=== PATIENT | female | born 1965 | race Caucasian/White ===

== ENCOUNTER 2024-05-29 18:17 | Inpatient (IN) | payer BC, SELFPAY ==
[2024-05-29] VITALS (9 sets, daily range): BP systolic 96–140; BP diastolic 53–90; BMI 24.6; BMI 23.3; BMI 23.5; BMI 23.4
[2024-05-29 11:52] LABS: % Basophils 0.5 % (0-2); % Eosinophils 0.2 % (0-6); % Immature Granulocytes 0.2 % (0-0.5); % Lymphocytes 10.6 % (20.5-51.1); % Monocytes 12.2 % (1.7-9.3); % Neutrophils 76.3 % (42.2-75.2); Absolute Lymphocytes 0.9 10^3/uL (1.2-3.4); Absolute Monocytes 1.1 10^3/uL (0.1-0.6); Absolute Neutrophils 6.8 10^3/uL (1.4-6.5); Hematocrit 43.6 % (37.0-47.0); Mean Corp Hgb Conc. 34.4 g/dL (33.0-37.0); Mean Corpuscular Hgb 31.3 pg (27.0-31.0); Mean Platelet Volume 10.3 fL (7.4-10.4); Nucleated Red Blood Cells % 0 %; Platelet Count 179 10^3/uL (130-400); Red Blood Cell Count 4.79 10^6/uL (4.20-5.40); Red Cell Dist. Width 11.6 % (11.5-14.5); White Blood Cell Count 8.9 10^3/uL (4.8-10.8)
[2024-05-29 11:56] LABS: ALT (SGPT) 46 U/L (0-35); AST (SGOT) 55 U/L (14-36); Albumin 4.5 g/dl (3.5-5.0); Alkaline Phosphatase 85 U/L (38-126); Blood Urea Nitrogen 14 mg/dl (7-17); Calcium 9.8 mg/dl (8.4-10.2); Carbon Dioxide 30 mmol/L (22-30); Chloride 97 mmol/L (98-107); Glucose 115 mg/dl (70-99); Potassium 5.4 mmol/L (3.5-5.1); Sodium 136 mmol/L (135-145); Total Bilirubin 0.5 mg/dl (0.2-1.3); Total Protein 7.2 g/dl (6.3-8.2); eGFR > 60.00
[2024-05-29 12:07] LABS: Troponin I 0.028 ng/ml
--- NOTE | 2024-05-29 14:39 | ED.GENMED ---
History of Present Illness
General
Chief Complaint: Chest Pain
Source: patient
Time Seen by Provider: 05/29/24 14:04
History of Present Illness
History of Present Illness:
59-year-old female with past medical history of hyperlipidemia presenting to the emergency department for evaluation after she started with palpitations and chest discomfort accompanied with diaphoresis around 9 AM while at work. Symptoms lasted
for approximately 30 to 45 minutes and are now resolved but patient states she has felt a mild sense of fatigue since that time. 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
Apple Watch thought patient may be in atrial fibrillation. Patient denies any history of similar. She does note a recent viral URI but reports resolution of the symptoms. Denies any current fevers, chills, rigors, chest pain or shortness of
breath, exertional dyspnea, orthopnea, cough or any other concerns. Family history was noted for mother having atrial fibrillation. Social history was noted for occasional alcohol use but denies any recently.
Past History
Past History
ED Past Medical History: Hypercholesterolemia
ED Past Surgical History: None
Social History
Tobacco: Non-smoker
Alcohol: Occasional
Drug: None
Personal:
Living: with family
Employment: Employed
Review of Systems
Review of Systems
All Other Systems: ROS reviewed and negative except as documented in HPI and ROS
Phy Exam
Physical Exam
Physical Exam:
GENERAL: Alert , in no apparent distress
EYE: conjunctiva clear
NECK: Supple, no significant adenopathy.
ENT: o/p clr, mmm.
CARDIAC: Regular rate and rhythm
LUNGS: Clear breath sounds bilaterally, no acute respiratory distress, no wheezes/rales/rhonchi
NEUROLOGICAL: Alert and oriented
SKIN: Warm and dry, skin intact.
MUSCULOSKELETAL: well perfused.
PSYCH: Normal and appropriate interaction.
Scores
Heart Failure Risk
Heart Failure Risk Score: Not Applicable
Heart Score for Chest Pain Patients
STEMI patient?: No
History: Moderately Suspicious
ECG: Normal
Age: >45 - <65 years
Risk Factors: 1 or 2 Risk Factors
Troponin: </= Normal Limit
Heart Score for Chest Pain Patients: 3
Heart Score Risk: 2.5% MACE over next 6 weeks
Withdrawal Assessment of Alcohol
Withdrawal Assessment Completed?: Not applicable
Course
Orders/Labs/Results
Orders:
Orders
05/29/24
Electrocardiogram (*1) Stat
Reason for Study: Chest Pain
Comment: DONE
05/29/24 11:04
Electrocardiogram (*1) Urgent
Reason for Study: Chest Pain
EKG- Treatment ONCE
05/29/24 11:24
Complete Blood Count/With Diff Urgent
Comprehensive Metabolic Panel Urgent
Troponin I Urgent
05/29/24 15:45
Troponin I Urgent
05/29/24 16:51
Electrocardiogram (*1) Urgent
Reason for Study: Shortness of Breath
EKG- Treatment ONCE
05/29/24 17:17
Aspirin Chewable [Low Strength Aspirin] 324 mg PO NOW STA
Heparin 3,400 units IV NOW STA
05/29/24 17:18
PTT Urgent
Comment: Obtain baseline before beginning heparin infusion if not already collected
Nursing to Place Non Medication Order As Directed
Physician Order: PTT 6 hours after initial start of Heparin infusion
05/29/24 17:28
Heparin [id number] Units/250 ml 25,000 units in 250 ml .ROUTE .STK-MED
05/29/24 17:30
Heparin [id number] Units/250 ml 25,000 units in 250 ml IV PER PROTOCOL
Weight to be used for heparin protocol in kilograms (kg):: 57.1
Protocol:: Cardiac Tx/Acute Coronary
PTT Goal Range to be used:: PTT 73 to 111 seconds
Order type:: Initial
INITIAL Infusion Dose (UNITS/KG/hr) & then follow protocol:: 15 units/kg/hr
Infusion Dose in UNITS/hr & then follow protocol (UNITS/hr):: 850
INFUSION RATE in mL/hr & then follow protocol (mL/hr):: 8.5
PTT less than or equal to 64 seconds:: Increase rate by 200 units/hr (+ 2 mL/hr)
PTT 64.1 to 72.9 seconds:: Increase rate by 100 units/hr (+ 1 mL/hr)
PTT 73 to 111 seconds:: Target Range. No change in rate.
PTT 111.1 to 130.9 seconds:: Decrease rate by 100 units/hr (- 1 mL/hr)
PTT 131 to 199.9 seconds:: HOLD for 1 hr. Then decrease rate by 200 units/hr (- 2 mL/hr)
PTT greater than or equal to 200 seconds:: HOLD for 2 hrs & Notify Provider. Then decrease by 200 units/hr (-
2 mL/hr)
Lab follow-up:: Each change, PTT q6h until 2 consecutive are therapeutic. Then PTT
daily.
Abnormal Lab Results
05/29/24 05/29/24
11:24 15:45
MCH 31.3 H pg
(27.0-31.0)
Absolute Neuts (auto) 6.8 H 10^3/uL
(1.4-6.5)
Absolute Lymphs (auto) 0.9 L 10^3/uL
(1.2-3.4)
Absolute Monos (auto) 1.1 H 10^3/uL
(0.1-0.6)
Neutrophils % 76.3 H %
(42.2-75.2)
Lymphocytes % 10.6 L %
(20.5-51.1)
Monocytes % 12.2 H %
(1.7-9.3)
Potassium 5.4 H mmol/L
(3.5-5.1)
Chloride 97 L mmol/L
(98-107)
Creatinine 0.5 L mg/dL
(0.6-1.0)
Glucose 115 H mg/dl
(70-99)
AST 55 H U/L
(14-36)
ALT 46 H U/L
(0-35)
Troponin I 0.057 H* D ng/ml
05/29/24 11:24
05/29/24 11:24
Vital Signs
Initial and Last Documented VS:
Initial Vital Signs
Temp Pulse Resp BP Pulse Ox
97.8 F 88 16 140/90 100
05/29/24 11:10 05/29/24 11:10 05/29/24 11:10 05/29/24 11:10 05/29/24 11:10
Last Documented Vital Signs
Temp Pulse Resp BP Pulse Ox
97.7 F 74 16 137/81 100
05/29/24 13:54 05/29/24 17:00 05/29/24 17:00 05/29/24 17:00 05/29/24 17:00
MDM/Problems Addressed
Differential Diagnosis Includes:
Cardiac dysrhythmia/arrhythmia, valvular disease, atypical ACS, GERD/gastritis, anxiety/stress
MDM/Problems Addressed:
59-year-old female presenting to the emergency department for evaluation of palpitations that began around 9 AM this morning, lasted about 45 minutes and then resolved. Patient does note that she was mildly diaphoretic at the time. Question A-fib
on her Apple Watch versus PACs on monitor at the urologist office. Patient in normal sinus rhythm here. She is in no acute distress. Labs were initiated on arrival. Chemistry does reveal mildly elevated AST/ALT which could be in conjunction with
recent viral illness. Potassium is slightly elevated at 5.4 but no evidence for renal dysfunction so this is potentially likely due to degree of hemolysis. Troponin is nonnegative but equivocal. Will repeat this. If negative will arrange for
close outpatient cardiology follow-up. If continues to trend upward may need admission for further trending of troponin.
*Pulse Oximetry
Patient hypoxic: no
*EKG
Heart Rate: 82
Rate: normal
Rhythm: sinus
Cammal: normal axis
Ischemia: no ischemia
*Central Office Operator Supervisor Interpretation
Rate: normal
Rhythm: sinus and PAC's
*Critical Care Note
Total Time (30-74mins, 75-104mins- exclusive of procedures): 30
comment:
Critical care statement: A total of 30 minutes of critical care time was provided for this patient. This includes management of unstable vital signs, evaluation of the patient at bedside, reviewing the patient's pertinent medical records, discussion
with consultants, review of old EKGs and review of pertinent medical records. This time with separate from time utilized to perform the aforementioned documented procedures
Patient Management
Discussion with other providers: Hospitalist and [employer]forming [employer] Manager
Escalation/DeEscalation of care consider admission/obs:
Patient's repeat troponin came back elevated at 0.057. She remains asymptomatic. Repeat EKG done which continues to show no evidence for acute ischemic changes. I discussed the case with cardiology who came to the bedside to evaluate the patient
and is recommending admission and treatment as if patient were having an NSTEMI with aspirin and heparin. Will admit to hospitalist team who accepts for continued evaluation and treatment.
ED Attending Note
-
Portions of this chart may have been created with voice recognition software.� Occasional wrong word or��sound alike� substitutions may have occurred due to the inherent limitations of voice recognition software.
Discharge Plan
Departure
Patient Disposition: Admit
Date of Disposition: 05/29/24
Time of Disposition: 17:19
Presentation/result/management discussed w/ accepting MD/DO: Hospitalist
Discharge Problem:
Angina pectoris, Acute non-ST elevation myocardial infarction (NSTEMI)
Referrals:
Saul Yeh DO [Family Provider] -
Interventions
Interventions:
*Risk Screen - Suicide Last Done: 05/29/24 11:10
*General Assessment Last Done: 05/29/24 11:10
*Neglect/Abuse Screening Last Done: 05/29/24 11:10
ED- Fall Risk Assessment Last Done: 05/29/24 15:40
*ED COVID-19 Vaccine History Last Done: 05/29/24 11:10
ED- Cardiac Assessment Last Done: 05/29/24 15:40
Discharge Date and Time
Print Language: [place] CITIZ[place]
[2024-05-29 16:45] LABS: Troponin I 0.057 ng/ml
--- NOTE | 2024-05-29 17:19 | CON.CAR ---
Consultation
Consultation Request
Date/Time Consultation Requested: 05/29/24
Date/Time Consultation Performed: 05/29/24
Requesting Provider: Harlan
Performing Provider: Shira
Reason for Consultation: Chest pain, elevated troponin
Medical History
-
Chief Complaint: chest pain
History of Present Illness:
59F PMHx HLD who presents for evaluation following an episode of chest discomfort. Patient reports that she was at work this morning and developed an episode of chest discomfort and palpitations followed by diaphoresis. Patient tells me she was
feeling lightheaded and dizzy but no margarette syncope. Her blood pressure was checked which was approximately 100/60. Tells me she was placed on a monitor that showed sinus with PACs. One reading on an Apple Watch recorded A-fib in the next sinus
rhythm. Outside of some URI symptoms and sinus congestion tells me she has been in her usual state of health. Has not had chest discomfort leading up to this and no shortness of breath/dyspnea on exertion or lower extremity edema.
She presented to [place] emergency department for evaluation. Here she has been chest pain-free. ECGs without obvious ischemic changes. Troponin uptrending 0.028�>0.057.
Past Medical History
Past Medical History: Other (HLD)
Past Surgical History: None
Social History
Tobacco: Non-Smoker
Alcohol: Occasional
Personal:
Employment: Employed
Family History
Family History: Other (Mom with Afib, no premature CAD in first degree relatives)
Allergies / Home Medications
Allergy/AdvReac Type Severity Reaction Status Date / Time
No Known Allergies Allergy Verified 05/29/24 11:14
Review of Systems
-
History Source: Patient
All other systems: Negative unless noted
Physical Exam
Vital Signs
Temp Pulse Resp BP Pulse Ox
97.7 F 74 16 137/81 100
05/29/24 13:54 05/29/24 17:00 05/29/24 17:00 05/29/24 17:00 05/29/24 17:00
Lab Results
05/29/24 11:24
05/29/24 11:24
Troponin I 0.057 ng/ml H* D 05/29/24 15:45
Physical Exam
General: Well Developed
HEENT: Normocephalic
Respiratory: Clear and Non Labored Respirations
Cardiac: S1/S2 and Regular Rhythm
Breast: Deferred by me
GI: Soft
Musculoskeletal: No Edema
Skin: Warm and Dry
Neuro: AO x 3
Psych: Calm
Impression / Plan
-
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
Assessment:
NSTEMI
Chest pain
Elevated troponin
HLD
Plan:
-Patient presents for evaluation following episode of chest discomfort and palpitations which came on at work. Has been chest pain-free here.
-ECGs (my interpretation) normal sinus rhythm without ischemic changes
-Maintaining sinus rhythm on telemetry
-Troponin initially within normal limits at 0.028 and up-trending to 0.057 concerning for NSTEMI
-Recommend medical management of ACS with full dose aspirin today and then low-dose aspirin daily, high intensity statin, beta-miranda and heparin drip
-As needed sublingual nitro for recurrent chest discomfort
-Trend troponin to peak
-Check echo on Saturday
-If she remains stable tentative plan for left heart catheterization on Saturday
Discussed with at bedside and ED PA
Data Reviewed
-
EKG: Tracing Personally Visualized and interpreted
Labs: Labs Reviewed by me
Old Records: Reviewed
[2024-05-29] MEDS: LOW STRENGTH ASPIRIN 324 MG PO (17:30)
--- NOTE | 2024-05-29 17:34 | EDRN ---
Ptt drawn and sent at this time.
--- NOTE | 2024-05-29 17:39 | EDRN ---
Pt was weighed on standing scale for better weight accuracy. Pharmacy calculated from 57.1 kg old weight and was asked to re-calculate and said wanted MD order. THis RN asked Lisa MORAN who wrote order and he said for pharmacy to recalculate the
heparin infusion and doses.
--- NOTE | 2024-05-29 18:04 | HPS.HSE ---
Family Physician
-
Family Physician: Saul Yeh
Chief Complaint
-
Chest pain
History of Present Illness
Ms. Amanda is a 59-year-old female with a medical history of hyperlipidemia who presented following an episode of chest discomfort at work. She reports onset of symptoms this morning, describes it as being able to feel her heart beating in her
chest and was uncomfortable and abnormal but not necessarily painful. She also experienced associated diaphoresis and dizziness. This is never happened to her before. She presented to the ED for further evaluation. Her symptoms resolved
spontaneously. She denies any family history of coronary artery disease but her mom does have A-fib.
In the ED, she has remained hemodynamically stable. EKG is showed no overt ischemic changes. She does have uptrending troponins (0.028 => 0.057). She was given full-strength aspirin, started on heparin drip and admitted for further evaluation and
management of NSTEMI.
Medical History
Past Medical History
Past Medical History: Reports Hypercholesterolemia
Past Surgical History: Reports None
Social History
Tobacco: Non-smoker
Alcohol: Occasional
Drug: None
Personal:
Living: With Family
Family History
Family History: Not pertinent
Allergies / Home Medications
Allergies reflects when Allergies were last updated in [employer].
Home Medications with original date entered in [employer]
Allergy/Medication List:
Allergies
Allergy/AdvReac Type Severity Reaction Status Date / Time
No Known Allergies Allergy Verified 05/29/24 11:14
Home Medications
atorvastatin 10 mg tablet 10 mg PO HS 05/29/24
qjjepkq-dwsdldoyr-ygcd 333 mg-133 mg-5 mg tablet 1 tab PO DAILY 05/29/24
cholecalciferol (vitamin D3) 25 mcg (1,000 unit) tablet (Vitamin D3) 25 mcg PO DAILY 05/29/24
ibuprofen 200 mg tablet 400 mg PO Q8HPRN PRN mild pain 05/29/24
magnesium oxide 250 mg PO DAILY 05/29/24
Review of Systems
-
History Source: Patient
A 12 point ROS was completed and negative except as noted: Yes
Physical Exam
Vital Signs
Vital Signs
Temp Pulse Resp BP Pulse Ox
97.7 F 74 16 137/81 100
05/29/24 13:54 05/29/24 17:00 05/29/24 17:00 05/29/24 17:00 05/29/24 17:00
Physical Exam
General: No Apparent Distress
Laboratory Results
-
05/29/24 11:24
05/29/24 11:24
Laboratory Results
APTT 23.0 Sec (23.4-35.0) L 05/29/24 17:34
Total Bilirubin 0.5 mg/dl (0.2-1.3) 05/29/24 11:24
AST 55 U/L (14-36) H 05/29/24 11:24
ALT 46 U/L (0-35) H 05/29/24 11:24
Alkaline Phosphatase 85 U/L (38-126) 05/29/24 11:24
Troponin I 0.057 ng/ml H* D 05/29/24 15:45
Impression/Plan
-
Gen-AAOx3, NAD
HEENT-NC, AT, anicteric, clear oral mm
Neck-supple
CV-reg, no M, +S1/S2
Lungs-clear B/L
Abd-soft, NT, ND
Musculoskeletal-no edema, no deformity
Skin-warm and dry
Neuro-grossly non-focal
Psych-calm, cooperative
. Friend is a 59-year-old female with a medical history of hyperlipidemia who presented following an episode of chest discomfort at work. She reports onset of symptoms this morning, describes it as being able to feel her heart beating in her
chest and was uncomfortable and abnormal but not necessarily painful. She also experienced associated diaphoresis and dizziness. This is never happened to her before. She presented to the ED for further evaluation. Her symptoms resolved
spontaneously. She denies any family history of coronary artery disease but her mom does have A-fib.
In the ED, she has remained hemodynamically stable. EKG is showed no overt ischemic changes. She does have uptrending troponins (0.028 => 0.057). She was given full-strength aspirin, started on heparin drip and admitted for further evaluation and
management of NSTEMI.
NSTEMI:
-Continue IV heparin drip
-Trend troponins through peak
-Daily aspirin 81 mg, high intensity statin, beta-blockade with metoprolol tartrate 12.5 mg p.o. twice daily
-Cardiology following, tentative plan for left heart cath on Saturday
-Echocardiogram pending
CODE STATUS: Full code
[2024-05-29] MEDS: HEPARIN 3400 UNITS IV (18:07)
[2024-05-29] MEDS: HEPARIN 25000 UNITS/250 ML IV (18:08)
[2024-05-29] MEDS: LIPITOR 40 MG PO (20:05)
[2024-05-29] MEDS: LOPRESSOR 12.5 MG PO (20:05)
--- NOTE | 2024-05-29 20:51 | PTCARENOTE ---
Receive pt from ER. Pt alert oriented X3, calm and in no distress. Pt denies chest pain, palpitation, or short of breath. Pt assisted to bed with no ambulatory issues. Pt oriented to the room, call cobb within reach. VSS (T=98, HR=74, RR=18,
RT=957/65, SpO2=98% on RA). Pt on NSR W/PACs on telemonitor. Hep gtt infusing at 820 units (8.2mL)/hr. Will continue to monitor the pt.
[2024-05-30] VITALS (8 sets, daily range): BP systolic 95–109; BP diastolic 54–69
[2024-05-30 01:29] LABS: APTT 42.4 Sec (23.4-35.0)
[2024-05-30 05:49] LABS: % Basophils 0.4 % (0-2); % Eosinophils 0.6 % (0-6); % Immature Granulocytes 0.1 % (0-0.5); % Lymphocytes 23.9 % (20.5-51.1); % Monocytes 9.8 % (1.7-9.3); % Neutrophils 65.2 % (42.2-75.2); Absolute Lymphocytes 1.7 10^3/uL (1.2-3.4); Absolute Monocytes 0.7 10^3/uL (0.1-0.6); Absolute Neutrophils 4.7 10^3/uL (1.4-6.5); Hematocrit 41.1 % (37.0-47.0); Hemoglobin 14.5 g/dL (12.0-16.0); Mean Corp Hgb Conc. 35.3 g/dL (33.0-37.0); Mean Corpuscular Hgb 31.7 pg (27.0-31.0); Mean Corpuscular Volume 89.9 fL (81.0-99.0); Mean Platelet Volume 10.7 fL (7.4-10.4); Nucleated Red Blood Cells % 0 %; Platelet Count 177 10^3/uL (130-400); Red Blood Cell Count 4.57 10^6/uL (4.20-5.40); Red Cell Dist. Width 11.7 % (11.5-14.5); White Blood Cell Count 7.2 10^3/uL (4.8-10.8)
[2024-05-30 06:24] LABS: ALT (SGPT) 36 U/L (0-35); AST (SGOT) 35 U/L (14-36); Albumin 4.1 g/dl (3.5-5.0); Alkaline Phosphatase 86 U/L (38-126); Blood Urea Nitrogen 14 mg/dl (7-17); Calcium 9.4 mg/dl (8.4-10.2); Carbon Dioxide 24 mmol/L (22-30); Chloride 103 mmol/L (98-107); Direct Bilirubin 0.1 mg/dl (0.0-0.4); Estimated Creatinine Clearance 73 ml/min; Glucose 100 mg/dl (70-99); Potassium 4.3 mmol/L (3.5-5.1); Sodium 136 mmol/L (135-145); Total Protein 6.5 g/dl (6.3-8.2); eGFR > 60.00
[2024-05-30 06:26] LABS: Troponin I 0.025 ng/ml
[2024-05-30 06:28] LABS: Troponin I 0.023 ng/ml
--- NOTE | 2024-05-30 07:43 | W.PN.CARDCBS ---
Addendum entered and electronically signed by Saul Loco MD 05/30/24 10:28:
Patient seen and examined
Agree with PA-C note and assessment
Agree with PA-C plan
Examination
����Physical Exam
���������������������General:��no apparent distress, not acutely ill
���������������������������Neck:��supple. no meningeal signs. normal psoterior pharynx
������������������������
���������������������������Heart:��s1/s2 regular rate and rhythm, no murmur. equal radial pulses.
��������������������������Lungs: ��no acute respiratory distress. clear bilaterally
����������������������Abdomen:�normal bowel sounds. not tender. no CVAT
��������������������������Neuro:��alert and oriented. no focal neurological deficits
������������������������������Skin: ��no rash
�����������������������Psychiatric:�well kept. interactive and cooperative
�����������������������Extremities:��no edema. no calf tenderness. negative homans. good distal pulses
��
�
Community Advocate: None prior to admission, initially seen by Dr. Silva
Impression:
Presented with chest pain
Elevated troponin, concerning for NSTEMI, peak troponin 0.057
HLD
Echo 06/01/2024: Study pending
Plan:
-Presented for evaluation of chest discomfort and palpitations which started at work. Admitted with elevated troponin.
-Concern for NSTEMI given chest discomfort and elevated troponin. Trop peaked at 0.057 and trended down thereafter.
-Remains pain free overnight without recurrent symptoms.
-No arrhythmias noted on telemetry.
-Continue aspirin 81mg daily. Heparin gtt running. Continue heparin throughout the weekend
-Started on metoprolol tartrate 12.5mg BID, but did note some hypotension and dizziness overnight. Continue to follow.
-Plan is for echo and [facility] Saturday, 06/01. N.p.o. after midnight Saturday night into Saturday
-Continue lipitor 40mg daily. Check CVE
-Check Hgb A1c
Original Note:
Today's Communication / Plan
-
Continue aspirin, lipitor
Follow BP on Lopressor
Heparin gtt running
Remains pain free
Echo and possibly [facility] 06/01
Check CVE, A1c in AM
Impression / Plan
-
Community Advocate: None prior to admission, initially seen by Dr. Silva
Impression:
Presented with chest pain
Elevated troponin, concerning for NSTEMI, peak troponin 0.057
HLD
Echo 06/01/2024: Study pending
Plan:
-Presented for evaluation of chest discomfort and palpitations which started at work. Admitted with elevated troponin.
-Concern for NSTEMI given chest discomfort and elevated troponin. Trop peaked at 0.057 and trended down thereafter.
-Remains pain free overnight without recurrent symptoms.
-No arrhythmias noted on telemetry.
-Continue aspirin 81mg daily. Heparin gtt running.
-Started on metoprolol tartrate 12.5mg BID, but did note some hypotension and dizziness overnight. Continue to follow.
-Plan is for echo and possibly [facility] Saturday, 06/01.
-Continue lipitor 40mg daily. Check CVE
-Check Hgb A1c
Progress Note - Community Advocate
Subjective
Date of Service: May 30, 2024
No further chest pain. Feeling well.
Objective
Labs:
05/30/24 05:21
05/30/24 05:21
Labs
Hgb 14.5 g/dL (12.0-16.0) 05/30/24 05:21
Hct 41.1 % (37.0-47.0) 05/30/24 05:21
Plt Count 177 10^3/uL (130-400) 05/30/24 05:21
APTT 42.4 Sec (23.4-35.0) H 05/30/24 01:00
Sodium 136 mmol/L (135-145) 05/30/24 05:21
Potassium 4.3 mmol/L (3.5-5.1) 05/30/24 05:21
BUN 14 mg/dl (7-17) 05/30/24 05:21
Creatinine 0.5 mg/dL (0.6-1.0) L 05/30/24 05:21
Glucose 100 mg/dl (70-99) H 05/30/24 05:21
Troponins
05/29/24 05/29/24 05/29/24
11:24 15:45 22:09
Troponin I 0.028 0.057 H* D 0.050 H*
05/30/24 05/30/24
05:21 05:21
Troponin I 0.025 D 0.023
Vital Signs and I&O:
Vital Signs
Temp Pulse Resp BP Pulse Ox
98.1 F 66 16 107/58 96
05/30/24 07:00 05/30/24 07:00 05/30/24 07:00 05/30/24 07:00 05/30/24 07:00
Vital Signs
Temp Pulse Resp BP Pulse Ox
98.1 F 66 16 107/58 96
05/30/24 07:00 05/30/24 07:00 05/30/24 07:00 05/30/24 07:00 05/30/24 07:00
Intake & Output
05/28/24 05/29/24 05/30/24 05/31/24
06:59 06:59 06:59 06:59
Intake Total 90 / 90
Balance 90 / 90
Physical Exam
Physical Exam
GEN: No distress, awake, alert, oriented x3
HEENT: supple, anicteric, mmm
LUNGS: CTA b/l, no wheezes/rales
CV: Reg, S1/S2, no murmur
EXT: No clubbing, cyanosis, or edema
NEURO: Gross non-focal
SKIN: Warm, dry, no rash
[2024-05-30 08:13] LABS: APTT 97.2 Sec (23.4-35.0)
[2024-05-30] MEDS: VITAMIN D3 (cholecalciferol) 25 MCG PO (08:21)
[2024-05-30] MEDS: ASPIR LOW (ENTERIC COATED) 81 MG PO (08:21)
[2024-05-30] MEDS: MAGNESIUM OXIDE 250 MG PO (08:22)
[2024-05-30] MEDS: LOPRESSOR 12.5 MG PO ×2 (08:24→20:09)
--- NOTE | 2024-05-30 12:14 | CM ---
Initial assessment completed. Admitted for chest pain. Patient is a 59-year-old female with a medical history of hyperlipidemia who presented following an episode of chest discomfort at work.
Patient reports that she lives w/ spouse in a split level home- 4 steps, a landing then 3 more additional steps to enter the home. Patient is independent w/ ambulating and ADLs, no DME identified or required. Pt denies SNF/VN/PT hx. Patient denies
any current home or OP services at this time.
Address, point of contact and insurance verified
PCP: Dr. Yeh
Pharmacy: [facility]
Per chart, plan is for echo and [facility] Saturday, 06/01.
Plan: Anticipate home; no needs
[2024-05-30 14:16] LABS: APTT 106.6 Sec (23.4-35.0)
--- NOTE | 2024-05-30 14:35 | W.PN.HOSP.TC ---
Today's Communication/Plan
-
Assessment / Plan
Assessment / Plan
Gen-AAOx3, NAD
HEENT-NC, AT, anicteric, clear oral mm
Neck-supple
CV-reg, no M, +S1/S2
Lungs-clear B/L
Abd-soft, NT, ND
Musculoskeletal-no edema, no deformity
Skin-warm and dry
Neuro-grossly non-focal
Psych-calm, cooperative
Ms. Amanda is a 59-year-old female with a medical history of hyperlipidemia who presented following an episode of chest discomfort at work. She reports onset of symptoms this morning, describes it as being able to feel her heart beating in her
chest and was uncomfortable and abnormal but not necessarily painful. She also experienced associated diaphoresis and dizziness. This is never happened to her before. She presented to the ED for further evaluation. Her symptoms resolved
spontaneously. She denies any family history of coronary artery disease but her mom does have A-fib. In the ED, she uptrending troponins, EKG showed no acute ischemic changes. She was given full-strength aspirin, started on heparin drip and
admitted for further evaluation and management of NSTEMI.
NSTEMI:
-Continue IV heparin drip
-Troponins have peaked and returned to within normal limits, no longer trending
-Daily aspirin 81 mg, high intensity statin, beta-blockade with metoprolol tartrate 12.5 mg p.o. twice daily
-Cardiology following, plan for echocardiogram and left heart cath on Thursday 06/01
-Check hemoglobin A1c and lipid panel
CODE STATUS: Full code
Anticipated Discharge: 24 - 48 hours
Subjective/Interval History
-
Date of Service: May 30, 2024
Patient was seen and examined at bedside this morning. Feeling well. Still on heparin drip. Troponins peaked overnight, no longer need to trend. No chest pain.
Objective Data
-
Labs:
Laboratory Results
05/30/24 05/30/24 05/30/24
05:21 07:36 13:47
WBC 7.2
Hgb 14.5
Hct 41.1
Plt Count 177
APTT 97.2 H 106.6 H
Sodium 136
Potassium 4.3
Chloride 103
Carbon Dioxide 24
BUN 14
Creatinine 0.5 L
Glucose 100 H
Calcium 9.4
Total Bilirubin 1.0
AST 35
ALT 36 H
Alkaline Phosphatase 86
Vital Signs:
Vital Signs
Temp Pulse Resp BP Pulse Ox
98.2 F 65 16 109/57 95
05/30/24 11:00 05/30/24 11:00 05/30/24 11:00 05/30/24 11:00 05/30/24 11:00
I&O
05/29/24 05/30/24 05/31/24
06:59 06:59 06:59
Intake Total 90 / 90
Balance 90 / 90
Review of Systems
-
History Source: Patient
All other systems: Reviewed and negative
Physical Exam
-
General: No Apparent Distress
[2024-05-30] MEDS: LIPITOR 40 MG PO (17:40)
[2024-05-30] MEDS: HEPARIN 25000 UNITS/250 ML IV (20:18)
[2024-05-31 03:15] VITALS: BP 100/62
[2024-05-31 06:16] LABS: APTT 137.6 Sec (23.4-35.0)
[2024-05-31 06:22] LABS: % Basophils 0.6 % (0-2); % Immature Granulocytes 0.2 % (0-0.5); % Lymphocytes 51.7 % (20.5-51.1); % Monocytes 12.6 % (1.7-9.3); % Neutrophils 32.9 % (42.2-75.2); Absolute Eosinophils 0.1 10^3/uL (0-0.7); Absolute Lymphocytes 2.6 10^3/uL (1.2-3.4); Absolute Monocytes 0.6 10^3/uL (0.1-0.6); Absolute Neutrophils 1.7 10^3/uL (1.4-6.5); Hematocrit 40.3 % (37.0-47.0); Mean Corp Hgb Conc. 34.7 g/dL (33.0-37.0); Mean Corpuscular Hgb 31.5 pg (27.0-31.0); Mean Corpuscular Volume 90.8 fL (81.0-99.0); Mean Platelet Volume 10.5 fL (7.4-10.4); Nucleated Red Blood Cells % 0 %; Platelet Count 192 10^3/uL (130-400); Red Blood Cell Count 4.44 10^6/uL (4.20-5.40); Red Cell Dist. Width 11.5 % (11.5-14.5); White Blood Cell Count 5.1 10^3/uL (4.8-10.8)
[2024-05-31 06:27] LABS: Blood Urea Nitrogen 15 mg/dl (7-17); Calcium 9.6 mg/dl (8.4-10.2); Carbon Dioxide 25 mmol/L (22-30); Chloride 104 mmol/L (98-107); Estimated Creatinine Clearance 73 ml/min; Glucose 94 mg/dl (70-99); HDL Cholesterol 77 mg/dl; LDL Cholesterol, Calculated 70 mg/dl; Phosphorus 3.9 mg/dl (2.5-4.5); Potassium 4.2 mmol/L (3.5-5.1); Sodium 138 mmol/L (135-145); Total Cholesterol 158 mg/dl (50-199); Triglyceride 56 mg/dl (10-149); Very Low Density Lipoprotein 11 mg/dl (0-30); eGFR > 60.00
[2024-05-31] MEDS: VITAMIN D3 (cholecalciferol) 25 MCG PO (07:32)
[2024-05-31] MEDS: MAGNESIUM OXIDE 250 MG PO (07:32)
[2024-05-31] MEDS: ASPIR LOW (ENTERIC COATED) 81 MG PO (07:32)
[2024-05-31] MEDS: LOPRESSOR 12.5 MG PO ×2 (07:32→20:00)
[2024-05-31 08:05] VITALS: BP 117/70
--- NOTE | 2024-05-31 11:39 | W.PN.CARDCBS ---
Today's Communication / Plan
-
Left heart cath and echo on Saturday
Heparin
Borderline tolerating the beta-miranda and placed hold parameters
Aspirin
Impression / Plan
-
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
Impression:
Presented with chest pain
Elevated troponin, concerning for NSTEMI, peak troponin 0.057
HLD
Echo 06/01/2024: Study pending
Plan:
-Presented for evaluation of chest discomfort and palpitations which started at work. Admitted with elevated troponin.
-Remains pain free over the weekend
-No arrhythmias noted on telemetry.
-Continue aspirin 81mg daily. Heparin gtt running.
-Started on metoprolol tartrate 12.5mg BID which she is borderline tolerating. I gave hold parameters to nursing for the blood pressure and heart rate. Ultimately may not be able to tolerate
-Plan is for echo and LHC Saturday, 06/01.
-Continue lipitor 40mg daily. Check CVE
-Check Hgb A1c
Progress Note - Machine Sander
Subjective
Date of Service: May 31, 2024
No further chest pain
Objective
Labs:
05/31/24 05:30
05/31/24 05:30
Labs
Hgb 14.0 g/dL (12.0-16.0) 05/31/24 05:30
Hct 40.3 % (37.0-47.0) 05/31/24 05:30
Plt Count 192 10^3/uL (130-400) 05/31/24 05:30
APTT 137.6 Sec (23.4-35.0) H 05/31/24 05:30
Sodium 138 mmol/L (135-145) 05/31/24 05:30
Potassium 4.2 mmol/L (3.5-5.1) 05/31/24 05:30
BUN 15 mg/dl (7-17) 05/31/24 05:30
Creatinine 0.5 mg/dL (0.6-1.0) L 05/31/24 05:30
Glucose 94 mg/dl (70-99) 05/31/24 05:30
Troponins
05/29/24 05/29/24 05/29/24
11:24 15:45 22:09
Troponin I 0.028 0.057 H* D 0.050 H*
05/30/24 05/30/24
05:21 05:21
Troponin I 0.025 D 0.023
Vital Signs and I&O:
Vital Signs
Temp Pulse Resp BP Pulse Ox
97.8 F 67 18 117/70 98
05/31/24 08:05 05/31/24 08:05 05/31/24 08:05 05/31/24 08:05 05/31/24 08:05
Vital Signs
Temp Pulse Resp BP Pulse Ox
97.8 F 67 18 117/70 98
05/31/24 08:05 05/31/24 08:05 05/31/24 08:05 05/31/24 08:05 05/31/24 08:05
Intake & Output
05/29/24 05/30/24 05/31/24 06/01/24
06:59 06:59 06:59 06:59
Intake Total 90 / 90 860.4 / 860.4
Balance 90 / 90 860.4 / 860.4
Physical Exam
Physical Exam
����Physical Exam
���������������������General:��no apparent distress, not acutely ill
���������������������������Neck:��supple. no meningeal signs. normal psoterior pharynx
������������������������
���������������������������Heart:��s1/s2 regular rate and rhythm, no murmur. equal radial pulses.
��������������������������Lungs: ��no acute respiratory distress. clear bilaterally
����������������������Abdomen:�normal bowel sounds. not tender. no CVAT
��������������������������Neuro:��alert and oriented. no focal neurological deficits
������������������������������Skin: ��no rash
�����������������������Psychiatric:�well kept. interactive and cooperative
�����������������������Extremities:��no edema. no calf tenderness. negative homans. good distal pulses
��
�
[2024-05-31 12:37] VITALS: BP 110/54
[2024-05-31 14:20] LABS: APTT 77.6 Sec (23.4-35.0)
--- NOTE | 2024-05-31 14:31 | W.PN.HOSP.TC ---
Today's Communication/Plan
-
Assessment / Plan
Assessment / Plan
Gen-AAOx3, NAD
HEENT-NC, AT, anicteric, clear oral mm
Neck-supple
CV-reg, no M, +S1/S2
Lungs-clear B/L
Abd-soft, NT, ND
Musculoskeletal-no edema, no deformity
Skin-warm and dry
Neuro-grossly non-focal
Psych-calm, cooperative
Friend is a 59-year-old female with a medical history of hyperlipidemia who presented following an episode of chest discomfort at work. She reports onset of symptoms this morning, describes it as being able to feel her heart beating in her
chest and was uncomfortable and abnormal but not necessarily painful. She also experienced associated diaphoresis and dizziness. This is never happened to her before. She presented to the ED for further evaluation. Her symptoms resolved
spontaneously. She denies any family history of coronary artery disease but her mom does have A-fib. In the ED, she uptrending troponins, EKG showed no acute ischemic changes. She was given full-strength aspirin, started on heparin drip and
admitted for further evaluation and management of NSTEMI.
NSTEMI:
-Continue IV heparin drip
-Troponins have peaked and returned to within normal limits, no longer trending
-Daily aspirin 81 mg, high intensity statin, beta-blockade with metoprolol tartrate 12.5 mg p.o. twice daily
-Cardiology following, plan for echocardiogram and left heart cath on Thursday 06/01
-hemoglobin A1c 5%, lipid panel within normal limits
CODE STATUS: Full code
Anticipated Discharge: 24 - 48 hours
Subjective/Interval History
-
Date of Service: May 31, 2024
Patient was seen and examined at bedside this morning. Feels comfortable and chest pain-free. Still on IV heparin drip. Awaiting left heart cath and echocardiogram tomorrow 06/01.
Objective Data
-
Labs:
Laboratory Results
05/31/24 05/31/24
05:30 13:42
WBC 5.1
Hgb 14.0
Hct 40.3
Plt Count 192
APTT 137.6 H 77.6 H
Sodium 138
Potassium 4.2
Chloride 104
Carbon Dioxide 25
BUN 15
Creatinine 0.5 L
Glucose 94
Calcium 9.6
Vital Signs:
Vital Signs
Temp Pulse Resp BP Pulse Ox
98 F 65 18 110/54 98
05/31/24 12:37 05/31/24 12:37 05/31/24 12:37 05/31/24 12:37 05/31/24 12:37
I&O
05/30/24 05/31/24 06/01/24
06:59 06:59 06:59
Intake Total 90 / 90 860.4 / 860.4 480 / 480
Balance 90 / 90 860.4 / 860.4 480 / 480
Review of Systems
-
History Source: Patient
All other systems: Reviewed and negative
Physical Exam
-
General: No Apparent Distress
[2024-05-31 16:01] VITALS: BP 102/65
[2024-05-31] MEDS: LIPITOR 40 MG PO (17:10)
[2024-05-31 19:55] VITALS: BP 97/64
[2024-05-31 21:12] LABS: APTT 56.5 Sec (23.4-35.0)
[2024-05-31 23:39] VITALS: BP 102/56
[2024-06-01] VITALS (21 sets, daily range): BP systolic 74–119; BP diastolic 46–77
[2024-06-01] MEDS: HEPARIN 25000 UNITS/250 ML IV (00:58)
[2024-06-01 06:02] LABS: % Basophils 0.9 % (0-2); % Eosinophils 2.2 % (0-6); % Immature Granulocytes 0.2 % (0-0.5); % Lymphocytes 45.2 % (20.5-51.1); % Neutrophils 38.5 % (42.2-75.2); Absolute Basophils 0.1 10^3/uL (0-0.2); Absolute Eosinophils 0.1 10^3/uL (0-0.7); Absolute Lymphocytes 2.5 10^3/uL (1.2-3.4); Absolute Monocytes 0.7 10^3/uL (0.1-0.6); Absolute Neutrophils 2.1 10^3/uL (1.4-6.5); Hematocrit 41.9 % (37.0-47.0); Hemoglobin 14.3 g/dL (12.0-16.0); Mean Corp Hgb Conc. 34.1 g/dL (33.0-37.0); Mean Corpuscular Hgb 30.7 pg (27.0-31.0); Mean Corpuscular Volume 89.9 fL (81.0-99.0); Nucleated Red Blood Cells % 0 %; Platelet Count 206 10^3/uL (130-400); Red Blood Cell Count 4.66 10^6/uL (4.20-5.40); Red Cell Dist. Width 11.5 % (11.5-14.5); White Blood Cell Count 5.5 10^3/uL (4.8-10.8)
[2024-06-01 06:06] LABS: Blood Urea Nitrogen 11 mg/dl (7-17); Calcium 9.4 mg/dl (8.4-10.2); Carbon Dioxide 29 mmol/L (22-30); Chloride 105 mmol/L (98-107); Estimated Creatinine Clearance 73 ml/min; Glucose 99 mg/dl (70-99); Sodium 139 mmol/L (135-145); eGFR > 60.00
[2024-06-01 06:07] LABS: APTT 73.3 Sec (23.4-35.0)
[2024-06-01] MEDS: ASPIR LOW (ENTERIC COATED) 81 MG PO (08:13)
[2024-06-01] MEDS: LOPRESSOR 12.5 MG PO (08:14)
[2024-06-01] MEDS: VITAMIN D3 (cholecalciferol) 25 MCG PO (08:14)
[2024-06-01] MEDS: MAGNESIUM OXIDE 250 MG PO (08:14)
[2024-06-01 12:09] LABS: APTT 119.2 Sec (23.4-35.0)
--- NOTE | 2024-06-01 14:01 | ITS.CL.CATH ---
Ad Operations Intern - Catheterization
Cardiac Catheterization
Procedure Report:
LEFT HEART CATHETERIZATION
Date of Procedure: June 01, 2024
Referring: Dr. Alvino Silva
PROCEDURES:
1. Left heart catheterization with coronary and single-plane left ventriculography
INDICATION: This is a 55-year-old female with a past medical history notable for hyperlipidemia. She presented to [facility] following development of substernal chest pressure while at work. She was feeling a little dizzy and lightheaded.
Her initial troponin increased from 0.028 to 0.057 ng/mL. She has been chest pain-free throughout the weekend but is referred for coronary angiography.
ACCESS: Right radial artery, 6 Bulgarian sheath using ultrasound guidance
HEMODYNAMICS : (mmHg)
AO (s/d) : 141/87, 77
LV (s/d) : 144/11
LVEDP : 22
CORONARY FINDINGS
DOMINANCE: codominant
LEFT MAIN: Normal
LEFT ANTERIOR DESCENDING: The LAD arises normally from the left main and runs in the anterior interventricular groove. The LAD is widely patent over its course. The distal vessel does taper to a small caliber vessel that is widely patent. A small
to medium caliber second diagonal branch arises from the mid LAD and is widely patent.
CIRCUMFLEX: The circumflex is a large-caliber codominant vessel supplying a large OM1. The circumflex continues in the AV groove supplying a moderate-sized posterolateral branch and small PDA
RIGHT CORONARY ARTERY: The right coronary artery is a small caliber nondominant versus codominant vessel that is widely patent over its course. No focal obstructive stenosis
VENTRICULOGRAPHY: Left ventriculography is performed in an CASTILLO projection. The digital single-plane left ventricular ejection fraction is visually estimated at 60% and no regional wall motion abnormalities are noted
RADIATION SUMMARY: Fluoro Time (min): 4.2, Dose (mGy): 123, DAP (Gy.cm2) : 9.8
Closure Device: TR band
CONCLUSIONS
1. Nonobstructive coronary disease
2. Preserved LV systolic function
RECOMMENDATIONS
1. Continue aspirin 81 mg daily
2. Stable for discharge. Would continue aspirin for now.
Copy to: Dr. Avlino Silva
--- NOTE | 2024-06-01 14:17 | PTCARENOTE ---
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 radial bad intact to right wrist. no bleeding or hematoma noted. pox 98% on right and- continuos pox in place to right hand. vitals noted. pst cath instructions reviewed with patient who
verbalized understanding. call cobb in reach. at bedside. plan of care on going.
--- NOTE | 2024-06-01 14:23 | PTCARENOTE ---
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 ice water gvien to patient.
--- NOTE | 2024-06-01 16:47 | W.PN.HOSP.TC ---
Today's Communication/Plan
-
d/c home
Assessment / Plan
Assessment / Plan
Ms. Amanda is a 59-year-old female with a medical history of hyperlipidemia who presented following an episode of chest discomfort at work. She reports onset of symptoms this morning, describes it as being able to feel her heart beating in her
chest and was uncomfortable and abnormal but not necessarily painful. She also experienced associated diaphoresis and dizziness. This is never happened to her before. She presented to the ED for further evaluation. Her symptoms resolved
spontaneously. She denies any family history of coronary artery disease but her mom does have A-fib. In the ED, she uptrending troponins, EKG showed no acute ischemic changes. She was given full-strength aspirin, started on heparin drip and
admitted for further evaluation and management of NSTEMI.
Chest pain
Ruled out NSTEMI
-Patient underwent left heart catheterization and showed nonobstructive coronary artery disease
-Echocardiogram showing preserved ejection fraction of 65%
-Troponins have peaked and returned to within normal limits, no longer trending
-As no clear NSTEMI patient being cleared to be discharged to home on oral baby aspirin
-Lipid profile reviewed and total cholesterol 158 on current atorvastatin 10 mg dose, continuing
-Patient to follow-up with cardiology in office
-hemoglobin A1c 5%, lipid panel within normal limits
CODE STATUS: Full code
More than 30 minutes spent in discharge including
Final examination of the patient
Summarizing hospital stay
Instructions for continuing care to all relevant caregivers
Preparation of discharge records, prescriptions, and referral forms
Total time spent (in minutes): 38 mins
Anticipated Discharge: Today
Subjective/Interval History
-
Date of Service: June 01, 2024
No reported chest pain issue
Denies any shortness of breath/nausea/vomiting
Objective Data
-
Labs:
Laboratory Results
06/01/24 06/01/24 06/01/24
05:18 11:50 18:15
WBC 5.5
Hgb 14.3
Hct 41.9
Plt Count 206
APTT 73.3 H 119.2 H Pending
Sodium 139
Potassium 4.0
Chloride 105
Carbon Dioxide 29
BUN 11
Creatinine 0.5 L
Glucose 99
Calcium 9.4
Vital Signs:
Vital Signs
Temp Pulse Resp BP Pulse Ox
98.8 F 67 18 99/57 98
06/01/24 15:00 06/01/24 16:00 06/01/24 16:00 06/01/24 16:00 06/01/24 16:00
I&O
05/31/24 06/01/24 06/02/24
06:59 06:59 06:59
Intake Total 860.4 / 860.4 1065.8 / 1065.8
Balance 860.4 / 860.4 1065.8 / 1065.8
Review of Systems
-
Respiratory: Reports No Symptoms
Cardiac: Reports No Symptoms
Abdomen/GI: Reports No Symptoms
Physical Exam
-
General: No Apparent Distress
HEENT: Negative Oxygen
Musculoskeletal: Other (Right wrist arterial occlusion device)
Neuro: Awake, Alert, Oriented and No Motor Deficits
--- NOTE | 2024-06-01 17:22 | CM ---
MD entered order for discharge.
Pt said she is ready for discharge.
She said her Bryce will drive her home.
Offered Vm she declined .
PLAN Home no needs
[2024-06-01] MEDS: NSS 500 IV (18:08)
[2024-06-01] MEDS: LIPITOR 40 MG PO (18:09)
--- NOTE | 2024-06-01 18:20 | PTCARENOTE ---
Addendum entered by Josie Haynes RN 06/01/24 19:47:
as of 1829 patient no longer symptomatic. Instructed not to get out of bed unattended. voiced understanding. call ell in reach. at bedside and updated. plan of care on going.
Original Note:
entered room at 1745 to remove radial band and patient reported she was feeling lightheaded, dizzy, and sweaty, sitting up in bed.. pale in color and diaphoretic, BP 74/46. head of bed lowered and BP 74/51, remained dizzy. Dr Cabrera notified and
cancelled discharge and ordered IV fluid bolus. bp rechecked at 1800 88/56, bolus started as ordered. 18 15 BP 98/61. patient no longer dizzy, color improved. assisted to BSC , urinated 300 ml without difficulty.
[2024-06-02 03:00] VITALS: BP 106/58
[2024-06-02 06:16] LABS: Hematocrit 39.2 % (37.0-47.0); Hemoglobin 13.5 g/dL (12.0-16.0); Mean Corp Hgb Conc. 34.4 g/dL (33.0-37.0); Mean Corpuscular Hgb 31.3 pg (27.0-31.0); Mean Corpuscular Volume 90.7 fL (81.0-99.0); Mean Platelet Volume 10.7 fL (7.4-10.4); Platelet Count 183 10^3/uL (130-400); Red Blood Cell Count 4.32 10^6/uL (4.20-5.40); Red Cell Dist. Width 11.3 % (11.5-14.5); White Blood Cell Count 5.8 10^3/uL (4.8-10.8)
[2024-06-02 06:36] LABS: Blood Urea Nitrogen 13 mg/dl (7-17); Calcium 9.3 mg/dl (8.4-10.2); Carbon Dioxide 27 mmol/L (22-30); Chloride 104 mmol/L (98-107); Estimated Creatinine Clearance 73 ml/min; Glucose 88 mg/dl (70-99); Sodium 138 mmol/L (135-145); eGFR > 60.00
[2024-06-02 07:55] VITALS: BP 113/72
[2024-06-02] MEDS: VITAMIN D3 (cholecalciferol) 25 MCG PO (08:16)
[2024-06-02] MEDS: ASPIR LOW (ENTERIC COATED) 81 MG PO (08:16)
[2024-06-02] MEDS: MAGNESIUM OXIDE 250 MG PO (08:16)
--- NOTE | 2024-06-02 08:32 | W.PN.HOSP.TC ---
Today's Communication/Plan
-
d/c home
Assessment / Plan
Assessment / Plan
Ms. Amanda is a 59-year-old female with a medical history of hyperlipidemia who presented following an episode of chest discomfort at work. She reports onset of symptoms this morning, describes it as being able to feel her heart beating in her
chest and was uncomfortable and abnormal but not necessarily painful. She also experienced associated diaphoresis and dizziness. This is never happened to her before. She presented to the ED for further evaluation. Her symptoms resolved
spontaneously. She denies any family history of coronary artery disease but her mom does have A-fib. In the ED, she uptrending troponins, EKG showed no acute ischemic changes. She was given full-strength aspirin, started on heparin drip and
admitted for further evaluation and management of NSTEMI.
Chest pain
Ruled out NSTEMI
-Patient underwent left heart catheterization and showed nonobstructive coronary artery disease
-Echocardiogram showing preserved ejection fraction of 65%
-Troponins have peaked and returned to within normal limits, no longer trending
-As no clear NSTEMI patient being cleared to be discharged to home on oral baby aspirin
-Lipid profile reviewed and total cholesterol 158 on current atorvastatin 10 mg dose, continuing
-Patient to follow-up with cardiology in office
-hemoglobin A1c 5%, lipid panel within normal limits
Hypotension
-patient was feeling warm/off yesterday evening with systolic pressure dropping in low 80s
-Lopressor discontinued, was started this admission
-recommended to check BP if patient feel any symptoms, not sure if initial presentation of diaphoresis/tightness related with orthostasis
HLD
-lipid profile reviewed
-controlled on lipitor 10mg/pm. maintain
CODE STATUS: Full code
More than 30 minutes spent in discharge including
Final examination of the patient
Summarizing hospital stay
Instructions for continuing care to all relevant caregivers
Preparation of discharge records, prescriptions, and referral forms
Total time spent (in minutes): 36 mins
Anticipated Discharge: Today
Subjective/Interval History
-
Date of Service: June 02, 2024
feeling better
no further episode of hypotension
Objective Data
-
Labs:
Laboratory Results
06/02/24
05:14
WBC 5.8
Hgb 13.5
Hct 39.2
Plt Count 183
Sodium 138
Potassium 4.0
Chloride 104
Carbon Dioxide 27
BUN 13
Creatinine 0.5 L
Glucose 88
Calcium 9.3
Vital Signs:
Vital Signs
Temp Pulse Resp BP Pulse Ox
98.8 F 68 16 113/72 100
06/02/24 07:55 06/02/24 07:55 06/02/24 07:55 06/02/24 07:55 06/02/24 07:55
I&O
06/01/24 06/02/24 06/03/24
06:59 06:59 06:59
Intake Total 1065.8 / 1065.8 1560 / 1560
Balance 1065.8 / 1065.8 1560 / 1560
Review of Systems
-
Respiratory: Reports No Symptoms
Cardiac: Reports No Symptoms
Abdomen/GI: Reports No Symptoms
Physical Exam
-
General: No Apparent Distress
HEENT: Negative Oxygen
Neuro: Awake, Alert, Oriented and No Motor Deficits
--- NOTE | 2024-06-02 09:00 | W.PN.CARDCBS ---
Today's Communication / Plan
-
Stable for discharge from my perspective
Recommend aspirin 81 mg daily and home dose of atorvastatin 10 mg daily
Impression / Plan
-
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
Impression:
Presented with chest pain
Elevated troponin - Nonischemic myocardial injury troponin elevation
HLD
Echo 06/01/2024: Study pending
Plan:
-Presented for evaluation of chest discomfort and palpitations which started at work. Admitted with elevated troponin.
-Remains pain free
-[facility] 06/01/24 with no significant CAD
-NL LVEF by echo and ventriculography
-Plan to discharge on aspirin 81mg daily
-Continue home statin dose
-Stop BB due to bradycardia and hypotension
Outpatient follow up arranged
Stable for discharge from my perspective
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
Subjective
Date of Service: June 02, 2024
[facility] yesterday with no sig CAD. Episode of lightheadedness and hypotension post-procedure. Feeling well today. No cardiac complaints.
Objective
Labs:
06/02/24 05:14
06/02/24 05:14
Labs
Hgb 13.5 g/dL (12.0-16.0) 06/02/24 05:14
Hct 39.2 % (37.0-47.0) 06/02/24 05:14
Plt Count 183 10^3/uL (130-400) 06/02/24 05:14
APTT Cancelled 06/01/24 18:15
Sodium 138 mmol/L (135-145) 06/02/24 05:14
Potassium 4.0 mmol/L (3.5-5.1) 06/02/24 05:14
BUN 13 mg/dl (7-17) 06/02/24 05:14
Creatinine 0.5 mg/dL (0.6-1.0) L 06/02/24 05:14
Glucose 88 mg/dl (70-99) 06/02/24 05:14
Vital Signs and I&O:
Vital Signs
Temp Pulse Resp BP Pulse Ox
98.8 F 68 16 113/72 100
06/02/24 07:55 06/02/24 07:55 06/02/24 07:55 06/02/24 07:55 06/02/24 07:55
Vital Signs
Temp Pulse Resp BP Pulse Ox
98.8 F 68 16 113/72 100
06/02/24 07:55 06/02/24 07:55 06/02/24 07:55 06/02/24 07:55 06/02/24 07:55
Intake & Output
05/31/24 06/01/24 06/02/24 06/03/24
06:59 06:59 06:59 06:59
Intake Total 860.4 / 860.4 1065.8 / 1065.8 1560 / 1560
Balance 860.4 / 860.4 1065.8 / 1065.8 1560 / 1560
Physical Exam
Physical Exam
Gen: NAD, AAOx3
HEENT: NC/AT, sclera anicteric
Neck: No JVD
CV: RRR, NL s1/s2, no M/R/G
Lungs: CTAB
Abd: S/ND
Ext: No LE edema
Skin: Warm, dry
Neuro: Non-focal
[2024-06-02 10:55] VITALS: BP 119/68
--- NOTE | 2024-06-02 11:08 | CM ---
MD entered order for discharge.
Pt said she is ready for discharge.
She said her Bryce will drive her home.
Offered VN she declined .
PLAN Home no needs
== END 2024-06-02 13:43 | disposition home or self-care (01) | DRG 287 ==
LOC: 4 EAST ACU 18:17
PROVIDERS: Emergency Medicine; Internal Medicine Interventional Cardiology; Nurse Practitioner; Physician Assistant Medical; ADMITTING PHYSICIAN Internal Medicine; ATTENDING PHYSICIAN Hospitalist; CONSULT PHYSICIAN Internal Medicine Cardiovascular Disease; EMERGENCY PHYSICIAN Emergency Medicine; FAMILY PHYSICIAN Family Medicine
PROC: B2151ZZ Fluoroscopy of Left Heart using Low Osmolar Contrast (ICD-10-PCS; 2024-06-01)
PROC: 4A023N7 Measurement of Cardiac Sampling and Pressure, Left Heart, Percutaneous Approach (ICD-10-PCS; 2024-06-01)
PROC: B2111ZZ Fluoroscopy of Multiple Coronary Arteries using Low Osmolar Contrast (ICD-10-PCS; 2024-06-01)
DX: I25.10 Atherosclerotic heart disease of native coronary artery without angina pectoris (principal); E78.00 Pure hypercholesterolemia, unspecified; I5A Non-ischemic myocardial injury (non-traumatic); R42 Dizziness and giddiness; I95.9 Hypotension, unspecified; R07.9 Chest pain, unspecified; Z82.49 Family history of ischemic heart disease and other diseases of the circulatory system
CPT/HCPCS: 80048; 80053; 80061; 82248; 83036; 83735; 84100; 84484; 85025; 85027; 85730; 93005; 93306; 93458; 96365; 99291; C1894; Q9967